=== PATIENT | female | born 1990 | race Caucasian/White ===

== ENCOUNTER → 2022-10-05 13:25 | Outpatient (BNVA) | payer OTHER, SELFPAY | PROVIDERS: PCP Family Medicine; Visit Provider Psychiatry & Neurology Neurology | DX: R25.9 Unspecified abnormal involuntary movements (principal); G43.909 Migraine, unspecified, not intractable, without status migrainosus; R20.2 Paresthesia of skin; R06.83 Snoring; G47.00 Insomnia, unspecified | CPT/HCPCS: 99202 ==

== ENCOUNTER 2025-08-07 11:29 | Outpatient (AMB) | payer BC, SELFPAY ==
--- NOTE | 2025-08-07 10:51 | A.OFFPC_ITS ---
Vital Signs 08/07/25 11:44 Height 5 ft 8 in Weight 241 lb BMI 36.6 BP 120/76 Blood Pressure Location Lt brachial Position Sitting Pulse 92 Pulse Source Pulse Oximeter Temp 97.8 F Temp Source Temporal Artery Scan Pulse Oximetry (%) 98 Oxygen Delivery Method Room Air Intake Visit Reasons: headaches Professional Development Instructor Required: No Accompanied by: Self / Same As Patient Allergies No Known Allergies Allergy (Verified 08/07/25 10:51) Medication List - Last Reconciled 08/07/25 by HIRAM Mario gabapentin 400 mg PO BID meloxicam 15 mg PO DAILY rizatriptan (Maxalt) take 1 tab at onset of headache; if no relief may repeat 1 tab after at least 2 hrs; max = 3 tabs/24 hr PO Tobacco use date assessed: 08/07/25 Dental Screening Dental Screen Date: 08/07/25 Did you have a dental visit in the last 12 months?: Yes Did you have a dental problem in the last 6 months where you did not have access to dental care?: No HPI HPI Comments History of Present Illness Details The patient is a 34-year-old female with Ulcerative colitis, History of Chiari type 1 cleared by neurology, MDD, Insomnia, migraine and history of anemia presenting with headaches and migraines. She reports a history of headaches, which are not new, and attributes them to dehydration due to her ileostomy, which she has had for about a year. She is scheduled to see a specialist for her ileostomy tomorrow and suspects dehydration as a contributing factor to her headaches. She has a history of Chiari malformation, which was evaluated by a neurologist in [place] and deemed non-surgical. The Chiari malformation was initially discovered due to her headaches. The patient has a history of depression and insomnia, which she believes are exacerbated by her current medication, gabapentin. She reports difficulty sleeping, often taking naps rather than having a full night's rest, and has not been on any medication specifically for sleep. She has a history of anemia, with the last blood count performed in 2021, and has previously received an iron infusion due to low levels. The patient has an IUD and does not experience heavy menstrual periods. For her migraines, she has been using [id number] medications like Tylenol and Advil sparingly, because she cannot take ibuprofen due to her use of meloxicam. She experiences migraines a couple of times a week, often triggered by stress and lack of sleep. Patient was informed and verbally consented to the use of an ambient scribe for clinic note documentation during this visit. [facility] Medical History (Updated 08/12/25 @ 00:54 by HIRAM Mario) Anemia Anxiety Chiari malformation type I Eczema H/O sigmoidoscopy Insomnia Major depression Migraine Obesity (BMI 35.0-39.9 without comorbidity) Snoring Ulcerative colitis Surgical History Hx of colonoscopy Family History (Updated 08/07/25 @ 11:49 by Pratima Bishop MA) Mother Diabetes mellitus HTN (hypertension) Myocardial infarction acute Neuropathy Father No problems noted. Social History Housing: House Alcohol intake: current Alcohol intake frequency: a few times a week Patient Tobacco Use Status: Never used Tobacco e-Cigarette/Vaping Use: Never Used service: No Current occupational status: employed Cognitive needs: No Hearing needs: No Vision needs: Yes (Rx Glasses) Questionnaire PHQ-9 Over the last 2 weeks, how often have you been bothered by any of the following problems? 1. Little interest or pleasure in doing things: not at all 2. Feeling down, depressed, or hopeless: nearly every day 3. Trouble falling or staying asleep, or sleeping too much: nearly every day 4. Feeling tired or having little energy: nearly every day 5. Poor appetite or overeating: not at all 6. Feeling bad about yourself - or that you are a failure or have let yourself or your family down: not at all 7. Trouble concentrating on things, such as reading the newspaper or watching television: not at all 8. Moving or speaking so slowly that other people could have noticed. Or the opposite - being so fidgety or restless that you have been moving around a lot more than usual: not at all 9. Thoughts that you would be better off or of hurting yourself in some w ay: not at all Total score: 9 Depression Screening Interpretation: Positive Depression Screening Follow-up: Follow-up Visit Requested Depression Screening Done: Yes Source: Developed by Drs. Edu Parrish, Charissa BCarlos Anderson and colleagues, with an educational andrew from [employer]. Thrive Questionnaire Date Thrive assessed: 08/07/25 I am a: Patient Within the past 12 months, did the food you bought not last and you didn't have the money to get more?: Never true Within the past 12 months, did you worry whether your food would run out before you got money to buy more?: Never true Do you have trouble paying for medicines?: No Do you have trouble getting transportation to medical appointments?: No Do you have trouble paying your heating and electricity bill?: No Do you have trouble taking care of your child, family member or friend?: No Do you have trouble with day-to-day activities such as bathing, preparing meals, shopping, managing finances, etc.?: No Are you currently unemployed and looking for a job?: No Are you interested in more education?: No THRIVE Score: 0 AUDIT C Alcohol Use Questionnaire (AUDIT-C) 1. How often do you have a drink containing alcohol?: Monthly or less 2. How many drinks containing alcohol do you have on a typical day when you are drinking?: 1 or 2 3. How often do you have six or more drinks on one occasion?: Less than monthly Total Score: 2 ELIZABETH-7 AMB Questionnaire ELIZABETH-7 Date ELIZABETH - 7 assessed: 08/07/25 Feeling nervous, anxious, or on edge: 0 = Not at all Not being able to stop or control worryin = Not at all Worrying too much about different things: 0 = Not at all Trouble relaxin = Not at all Being so restless that it is hard to sit still: 0 = Not at all Becoming easily annoyed or irritable: 0 = Not at all Feeling afraid as if something awful might happen: 0 = Not at all Total ELIZABETH-7 score (0-4 normal; 5-9 mild; 10-14 moderate; 15-21 severe): 0 Source: Developed by Drs. Edu Parrish, Carlos Ugarte and colleagues, with an educational andrew from [employer]. Review of Systems Const Details: CONSTITUTIONAL Reports history of anemia fatigue HEAD/NECK Migraines EAR/NOSE/MOUTH/THROAT Negative RESPIRATORY Negative CARDIOVASCULAR Negative GASTROINTESTINAL Negative MUSCULOSKELETAL Negative NEUROLOGICAL Reports headaches and migraines, denies aura or visual disturbances PSYCHIATRIC Reports depression and insomnia Physical exam (Primary Care) Vital Signs: Last Vital Signs Temp 97.8 F 08/07/25 11:44 Pulse 92 08/07/25 11:44 BP 120/76 08/07/25 11:44 Pulse Ox 98 08/07/25 11:44 Oxygen Delivery Method Room Air 08/07/25 11:44 BMI result Body Mass Index 36.6 GENERAL Well developed, obese, in no apparent distress HEENT Head-Normocephalic Eyes- PERRLA, EOMI, Conjuctiva clear, lids WNL Ears- Canals clear, TMs WNL Mouth/Throat-No lesions, no erythema, no exudate Neck- Supple, No lymphadenopathy, thyroid WNL RESPIRATORY Normal I:E, Clear to auscultation CARDIOVASCULAR Regular, rate and rhythm, No murmurs or rubs GASTROINTESTINAL Soft, nontender, normal bowel sounds, no masses MUSCULOSKELETAL Back- nontender Joints- no pain swelling or deformity NEUROLOGICAL Gait normal PSYCHIATRIC Oriented to person, place and time Mood and affect- depressed Appearance WNL Speech WNL Thought processes WNL Tobacco/Smoking Status: Tobacco use Status Tobacco use date assessed 08/07/25 08/07/25 10:52 Patient Tobacco Use Status Never used Tobacco 08/07/25 10:52 e-Cigarette/Vaping Use Never Used 08/07/25 10:52 PHQ-9: PHQ-9 Score PHQ-9: Total score 9 08/07/25 16:13 Depression Screening Interpretation: Positive Depression Screening Follow-up: Follow-up Visit Requested Thrive Assessment: Date of Thrive Assessment Date Thrive assessed 08/07/25 08/07/25 10:52 Coding Level of Care Code New Pt New Pt Level 4 (67527) Patient Type New Diagnoses Chronic migraine without aura without status migrainosus, not intractable G43.709 Migraine type: chronic migraine (15 or more days per month) without aura Status migrainosus presence: without status migrainosus Intractability: not intractable Anemia D64.9 Ulcerative colitis K51.90 Major depression F32.9 Insomnia G47.00 Obesity (BMI 35.0-39.9 without comorbidity) E66.9 Time Spent (min) 30 Comment Time spent on Chart review, medication reconciliation, H&P, patient education, orders Assessment & Plan Assessment & Plan (1) Migraine: Code(s): G43.909 - Migraine, unspecified, not intractable, without status migrainosus Category: Medical Qualifiers: Migraine type: chronic migraine (15 or more days per month) without aura Status migrainosus presence: without status migrainosus Intractability: not intractable Qualified Code(s): G43.709 - Chronic migraine without aura, not intractable, without status migrainosus Plan: The patient reports chronic headaches, likely exacerbated by dehydration due to her ileostomy. She is advised to maintain adequate hydration and follow up with her specialist regarding her ileostom The patient experiences migraines a couple of times a week, often triggered by stress and lack of sleep. She is prescribed Maxalt or Zomig, depending on insurance coverage, to be taken at the onset of migraine symptoms. She is advised to avoid known triggers and maintain a regular sleep schedule. (2) Anemia: Code(s): D64.9 - Anemia, unspecified Category: Medical Plan: The patient has a history of anemia, with the last blood count performed in 2021. Blood work, including a blood count, ferritin level, and iron study, is ordered to assess her current status. (3) Ulcerative colitis: Code(s): K51.90 - Ulcerative colitis, unspecified, without complications Category: Medical Plan: Patient is followed by GI (4) Major depression: Code(s): F32.9 - Major depressive disorder, single episode, unspecified Category: Medical Plan: The patient reports a history of depression, which may be exacerbated by her current medication, gabapentin. No specific changes to her depression management were discussed during this visit. (5) Insomnia: Code(s): G47.00 - Insomnia, unspecified Category: Medical Plan: The patient reports insomnia, potentially exacerbated by gabapentin. Consideration of medications that may aid sleep and also help with migraines was discussed, but no specific medication was initiated. (6) Obesity (BMI 35.0-39.9 without comorbidity): Comment: BMI today was 36.6 Code(s): E66.9 - Obesity, unspecified Category: Medical Plan: Discussed the health risks of obesity with the patient. Reviewed benefits of even moderate weight loss with the patient. Patient will gradually try and increase exercise to 30-40 min 5-7 times per week.. We discussed the patient adding more fruits and vegetables to their diet. Will monitor weight and follow up in 2 months. Plan During the visit, we discussed the management of the patient's migraines, including the use of triptans such as Maxalt or Zomig, depending on insurance coverage. I advised the patient to take the medication at the onset of migraine symptoms and to avoid known triggers such as stress and lack of sleep. We also discussed the need for blood work to assess her anemia status and the importance of maintaining hydration due to her ileostomy. Orders: Orders Complete Blood Count no Diff 08/07/25 D64.9 - Anemia, unspecified, G43.909 - Migraine, unspecified, not intractable, without status migrainosus Comprehensive Met. Panel 08/07/25 G43.909 - Migraine, unspecified, not intractable, without status migrainosus, K51.90 - Ulcerative colitis, unspecified, without complications TSH reflex Free T4 08/07/25 F32.9 - Major depressive disorder, single episode, unspecified, F41.9 - Anxiety disorder, unspecified, G43.909 - Migraine, unspecified, not intractable, without status migrainosus Ferritin 08/07/25 D64.9 - Anemia, unspecified IRON PROFILE 08/07/25 D64.9 - Anemia, unspecified Medications: New rizatriptan (Maxalt) take 1 tab at onset of headache; if no relief may repeat 1 tab after at least 2 hrs; max = 3 tabs/24 hr PO 10 tabs 1RF Patient Instructions: - Take prescribed migraine medication at the onset of symptoms. - Avoid known migraine triggers such as stress and lack of sleep. - Maintain adequate hydration, especially due to ileostomy. - Complete blood work as ordered to assess anemia status.
[2025-08-07 11:44] VITALS: BP 120/76; PULSE 92; TEMP 36.6; O2SAT 98; BMI 36.6
--- OUTSIDE RECORDS SUMMARY | 2025-08-07 14:36 | XMS_ITS | Clinical Summary ---
Author Organization [facility] Address [address] [place] [address] Care Team Providers Care Crew Leader Gluing Name Role Phone Pcp, No Primary Care Provider Unavailabl e Allergies No known active allergies Medications azaTHIOprine (Imuran) 50 mg tablet Take 50 mg by mouth in the morning. 2 Active sertraline (Zoloft) 50 mg tablet Take 75 mg by mouth. 2 Active ustekinumab (Stelara) 130 mg/26 mL injection Infuse 520 mg into a venous catheter. 2 Active ferrous sulfate 325 (65 Fe) MG EC tablet Take 1 tablet by mouth every other day. 2 Active levonorgestreL (Liletta) 20.4 mcg/24 hrs (8 yrs) 52 mg IUD 52 mg by intrauterine route. 2 Active propranolol (Inderal) 60 mg tabletIndicatio ns:Migraine with aura and without status migrainosus, not intractable,Ble pharospasm,Trem or of face and hands Take 1 tablet (60 mg) by mouth in the morning. 60 tablet 11 3 Active Active Problems Problem Noted Date Diagnosed Date Colitis 11/19/2022 Family History Medical History Relation Name Comments Depression Father Migraines Mother Relation Name Status Comments Father Mother Social History Tobacco Use Types Packs/Day Years Used Date Smoking Tobacco: Never Tobacco Cessation:Counseling Given: Not Answered Alcohol Use Standard Drinks/Week Comments Yes 0 (1 standard drink = 0.6 oz pur e alcohol) a few times per month Comments Unknown Sex and Gender Information Value Date Recorded Sex Assigned at Not on file Legal Sex Female 8:58 AM EST Gender Identity Not on file Sexual Orientation Not on file Last Filed Vital Signs Vital Sign Reading Time Taken Comments Blood Pressure 114/70 11/19/2022 8:00 AM EST Pulse 88 11/19/2022 8:00 AM EST Temperature - - Respiratory Rate - - Oxygen Saturation 100% 11/19/2022 8:00 AM EST Inhaled Oxygen Concentration - - Weight 99.4 kg (219 lb 3.2 oz) 11/19/2022 8:00 A M EST Height 172.7 cm (5' 8 ) 11/19/2022 8:00 AM EST Body Mass Index 33.33 11/19/2022 8:00 AM EST Plan of Treatment Health Maintenance Due Date Last Done Comments HIV Screening 1990 HPV Vaccines (2 - 3-dose series) 11/28/2007 10/31/2007 Hepatitis C Screening 2008 Pap Smear 2011 Cervical Cancer Screening 2020 HPV/Cotest 2020 Pneumococcal Vaccine: Pediatrics (0 to 5 Years) and At-Risk Patients (6 to 49 Years) (2 of 2 - PCV) 12/16/2020 12/16/2019 Depression Screening 11/14/2024 COVID-19 Vaccine ( season) 2025 08/24/2021, 12/20/2020, 11/29/2020 Influenza Vaccine (#1) 2025 , 09/23/2020, 08/29/2019, Additional history exists DTaP/Tdap/Td Vaccines (8 - Td or Tdap) 07/16/2025 07/16/2015, 10/31/2007, 06/03/2003, Additional history exists IPV Vaccines Completed 01/27/1996, 07/15, 06/28/1991, Additional history exists MMR Vaccines Completed 02/27/1996, 04/28/1992 Hepatitis B Vaccines Completed 07/27/2000, 02/27/1996, 01/27/1996 Meningococcal Vaccine Aged Out 09/15/2005 No ashlie michael eligible based on patient's age to complete this topic Varicella Vaccines Completed 07/24/2009, 01/27/1996 Hepatitis A Vaccines Aged Out 08/24/2021 No long er eligible based on patient's age to complete this topic HIB Vaccines Aged Out No longer eligi ble based on patient's age to complete this topic Meningococcal B Vaccine Aged Out No l onger eligible based on patient's age to complete this topic Rotavirus Vaccines Aged Out No longer eligible based on patient's age to complete this topic Insurance [facility] Care Teams Crew Leader Gluing Relationship Specialty Start Date End Date Keisha Gutierrez MA PCP - General Internal Medicine 11/19/22
== END 2025-08-07 13:00 | disposition home or self-care (01) ==
LOC: HO.HMCHD 11:30
PROVIDERS: PCP Physician Assistant Medical; Visit Provider Physician Assistant Medical
DX: G43.709 Chronic migraine without aura, not intractable, without status migrainosus (principal); K51.90 Ulcerative colitis, unspecified, without complications; E66.9 Obesity, unspecified; Z68.36 Body mass index [BMI] 36.0-36.9, adult; D64.9 Anemia, unspecified; F32.9 Major depressive disorder, single episode, unspecified; G47.00 Insomnia, unspecified

== ENCOUNTER 2025-09-18 16:20 | Outpatient (AMB) | payer BC, SELFPAY ==
[2025-09-18 15:57] VITALS: BP 109/67; PULSE 75; TEMP 36.9; O2SAT 100; BMI 37.6
--- NOTE | 2025-09-18 15:57 | A.OFFPC_ITS ---
Vital Signs 09/18/25 15:57 Height 5 ft 8 in Intake Visit Reasons: 6 WEEKS FOLLOW UP Supervisor Slate Splitting Required: No Accompanied by: Self / Same As Patient Allergies No Known Allergies Allergy (Verified 09/18/25 15:57) Tobacco use date assessed: 09/18/25 Dental Screening Dental Screen Date: 09/18/25 Did you have a dental visit in the last 12 months?: Yes Did you have a dental problem in the last 6 months where you did not have access to dental care?: No PFSH Medical History Obesity (BMI 35.0-39.9 without comorbidity) Insomnia Snoring Chiari malformation type I Anemia Eczema Ulcerative colitis Migraine Anxiety Major depression H/O sigmoidoscopy Surgical History Hx of colonoscopy Family History Mother Diabetes mellitus HTN (hypertension) Myocardial infarction acute Neuropathy Father No problems noted. Social History Housing: House Alcohol intake: current Alcohol intake frequency: a few times a week Patient Tobacco Use Status: Never used Tobacco e-Cigarette/Vaping Use: Never Used service: No Current occupational status: employed Cognitive needs: No Hearing needs: No Vision needs: Yes (Rx Glasses) Questionnaire PHQ-9 Over the last 2 weeks, how often have you been bothered by any of the following problems? 1. Little interest or pleasure in doing things: not at all 2. Feeling down, depressed, or hopeless: not at all 3. Trouble falling or staying asleep, or sleeping too much: not at all 4. Feeling tired or having little energy: not at all 6. Feeling bad about yourself - or that you are a failure or have let yourself or your family down: not at all 7. Trouble concentrating on things, such as reading the newspaper or watching television: not at all 8. Moving or speaking so slowly that other people could have noticed. Or the opposite - being so fidgety or restless that you have been moving around a lot more than usual: not at all 9. Thoughts that you would be better off or of hurting yourself in some way: not at all Source: Developed by Drs. Edu Parrish, Charissa Servin, Carlos armas nd colleagues, with an educational andrew from [employer]. Thrive Questionnaire Date Thrive assessed: 09/18/25 I am a: Patient Within the past 12 months, did the food you bought not last and you didn't have the money to get more?: Never true Within the past 12 months, did you worry whether your food would run out before you got money to buy more?: Never true Do you have trouble paying for medicines?: No Do you have trouble getting transportation to medical appointments?: No Do you have trouble paying your heating and electricity bill?: No Do you have trouble taking care of your child, family member or friend?: No Do you have trouble with day-to-day activities such as bathing, preparing meals, shopping, managing finances, etc.?: No Are you currently unemployed and looking for a job?: No Are you interested in more education?: No THRIVE Score: 0 AUDIT C Alcohol Use Questionnaire (AUDIT-C) 1. How often do you have a drink containing alcohol?: Never 3. How often do you have six or more drinks on one occasion?: Never Total Score: 0 ELIZABETH-7 AMB Questionnaire ELIZABETH-7 Date ELIZABETH - 7 assessed: 09/18/25 Feeling nervous, anxious, or on edge: 0 = Not at all Not being able to stop or control worryin = Not at all Worrying too much about different things: 0 = Not at all Trouble relaxin = Not at all Being so restless that it is hard to sit still: 0 = Not at all Becoming easily annoyed or irritable: 0 = Not at all Feeling afraid as if something awful might happen: 0 = Not at all Total ELIZABETH-7 score (0-4 normal; 5-9 mild; 10-14 moderate; 15-21 severe): 0 Source: Developed by Drs. dEu Parrish, Carlos Ugarte and colleagues, with an educational andrew from [employer]. Physical exam (Primary Care) Tobacco/Smoking Status: Tobacco use Status Tobacco use date assessed 08/07/25 08/07/25 10:52 Patient Tobacco Use Status Never used Tobacco 08/07/25 10:52 e-Cigarette/Vaping Use Never Used 08/07/25 10:52 Thrive Assessment: Date of Thrive Assessment Date Thrive assessed 08/07/25 08/07/25 10:52 Coding
--- NOTE | 2025-09-18 16:33 | MHC.PC.OV ---
Vital Signs 09/18/25 15:57 Height 5 ft 8 in Weight 247 lb 2 oz BMI 37.6 BP 109/67 Blood Pressure Location Lt brachial Position Sitting Pulse 75 Pulse Source Pulse Oximeter Temp 98.4 F Temp Source Temporal Artery Scan Pulse Oximetry (%) 100 Oxygen Delivery Method Room Air Intake Visit Reasons: 6 WEEKS FOLLOW UP Accompanied by: Self / Same As Patient Allergies No Known Allergies Allergy (Verified 09/18/25 16:37) Medication List - Last Reconciled 09/18/25 by HIRAM Mario gabapentin 400 mg PO BID meloxicam 15 mg PO DAILY rizatriptan (Maxalt) take 1 tab at onset of headache; if no relief may repeat 1 tab after at least 2 hrs; max = 3 tabs/24 hr PO sertraline 25 mg PO DAILY trazodone 1 or 2 orally bedtime PRN; Tobacco use date assessed: 09/18/25 Dental Screening Dental Screen Date: 09/18/25 Did you have a dental visit in the last 12 months?: Yes Did you have a dental problem in the last 6 months where you did not have access to dental care?: No HPI HPI Comments History of Present Illness Details The patient is a 34-year-old female with Ulcerative colitis, MDD, insomnia, migraines, anemia and obesity presenting for follow-up on migraines and evaluation of severe brain fog. She has only taken Maxalt twice for migraines since her last visit, as her symptoms improved after receiving IV fluids for dehydration, and reports the medication worked well. The patient's primary concern is a recent onset of severe and frequent brain fog, which she finds scary. She reports being unable to retain information for her studies and has instances of not remembering recent events, such as watching a movie with her family. This is also causing issues with her partner, who notes her lack of memory of recent conversations. Associated with this, she reports significant sleep disturbance, characterized by difficulty falling asleep and waking up a few hours later, unable to return to sleep. The patient reports significant life stressors, including nursing school, her mother sustaining a major injury, and work. Past medical history is notable for depression in 2010, for which she was treated with sertraline. She also has a history of anemia requiring iron infusions, which occurred post- and in the context of severe colitis with bleeding. The patient recently had a follow-up sigmoidoscopy for her ileostomy with [facility] and is awaiting the results. She did not complete her lab work after the last visit but plans to do so today. Medical History: - Migraine headaches - depression, occurred in 2010, treated with sertraline - Anemia, required infusions, occurred post- - Colitis with bleeding Surgical History: - Ileostomy Medications: - Gabapentin - Meloxicam - Maxalt as needed for migraine Patient was informed and verbally consented to the use of an ambient scribe for clinic note documentation during this visit. [facility] Medical History (Updated 09/18/25 @ 17:38 by HIRAM Mario) Anemia Anxiety Brain fog Chiari malformation type I Eczema H/O sigmoidoscopy Insomnia Major depression Migraine Obesity (BMI 35.0-39.9 without comorbidity) Snoring Ulcerative colitis Surgical History Hx of colonoscopy Family History (Updated 09/18/25 @ 16:38 by Pratima Bishop MA) Mother Diabetes mellitus HTN (hypertension) Myocardial infarction acute Neuropathy Father No problems noted. Social History Housing: House Alcohol intake: current Alcohol intake frequency: a few times a week Patient Tobacco Use Status: Never used Tobacco e-Cigarette/Vaping Use: Never Used service: No Current occupational status: employed Cognitive needs: No Hearing needs: No Vision needs: Yes (Rx Glasses) Questionnaire PHQ-9 Over the last 2 weeks, how often have you been bothered by any of the following problems? 1. Little interest or pleasure in doing things: not at all 2. Feeling down, depressed, or hopeless: several days 3. Trouble falling or staying asleep, or sleeping too much: nearly every day 4. Feeling tired or having little energy: nearly every day 5. Poor appetite or overeating: nearly every day 6. Feeling bad about yourself - or that you are a failure or have let yourself or your family down: not at all 7. Trouble concentrating on things, such as reading the newspaper or watching television: not at all 8. Moving or speaking so slowly that other people could have noticed. Or the opposite - being so fidgety or restless that you have been moving around a lot more than usual: not at all 9. Thoughts that you would be better off or of hurting yourself in some way: not at all Total score: 10 Depression Screening Interpretation: Positive Depression Screening Follow-up: New Medication prescribed Depression Screening Done: Yes [id number] - PHQ-9 Billing: Yes Source: Developed by Drs. Edu Parrish, Charissa Servin, Carlos Luna and colleagues, with an educational andrew from [employer]. Thrive Questionnaire Date Thrive assessed: 09/18/25 I am a: Patient Within the past 12 months, did the food you bought not last and you didn't have the money to get more?: Never true Within the past 12 months, did you worry whether your food would run out before you got money to buy more?: Never true Do you have trouble paying for medicines?: No Do you have trouble getting transportation to medical appointments?: No Do you have trouble paying your heating and electricity bill?: No Do you have trouble taking care of your child, family member or friend?: No Do you have trouble with day-to-day activities such as bathing, preparing meals, shopping, managing finances, etc.?: No Are you currently unemployed and looking for a job?: No Are you interested in more education?: No THRIVE Score: 0 AUDIT C Alcohol Use Questionnaire (AUDIT-C) 1. How often do you have a drink containing alcohol?: Monthly or less 2. How many drinks containing alcohol do you have on a typical day when you are drinking?: 1 or 2 3. How often do you have six or more drinks on one occasion?: Less than monthly Total Score: 2 ELIZABETH-7 AMB Questionnaire ELIZABETH-7 Date ELIZABETH - 7 assessed: 09/18/25 Feeling nervous, anxious, or on edge: 1 = Several days Not being able to stop or control worryin = Nearly every day Worrying too much about different things: 3 = Nearly every day Trouble relaxin = Nearly every day Being so restless that it is hard to sit still: 0 = Not at all Becoming easily annoyed or irritable: 3 = Nearly every day Feeling afraid as if something awful might happen: 0 = Not at all Total ELIZABETH-7 score (0-4 normal; 5-9 mild; 10-14 moderate; 15-21 severe): 13 Source: Developed by Drs. Edu Parrish, Charissa Servin, Carlos Luna and colleagues, with an educational andrew from [employer]. Review of Systems Narrative - Neurological: Reports severe, frequent brain fog and memory loss. - Psychiatric: Reports difficulty falling asleep and staying asleep. - Constitutional: Denies recent illness. Physical exam (Primary Care) Vital Signs: Last Vital Signs Temp 98.4 F 09/18/25 15:57 Pulse 75 09/18/25 15:57 BP 109/67 09/18/25 15:57 Pulse Ox 100 09/18/25 15:57 Oxygen Delivery Method Room Air 09/18/25 15:57 BMI result Body Mass Index 37.6 GENERAL Well developed, obese, in no apparent distress HEENT Head-Normocephalic Neck- Supple, No lymphadenopathy, thyroid WNL RESPIRATORY Normal I:E, Clear to auscultation CARDIOVASCULAR Regular, rate and rhythm, No murmurs or rubs MUSCULOSKELETAL Back- nontender Joints- no swelling or deformity NEUROLOGICAL Gait normal PSYCHIATRIC Oriented to person, place and time Mood and affect- depressed, trouble sleeping Appearance WNL Speech WNL Thought processes WNL Tobacco/Smoking Status: Tobacco use Status Tobacco use date assessed 09/18/25 09/18/25 16:39 Patient Tobacco Use Status Never used Tobacco 09/18/25 16:39 e-Cigarette/Vaping Use Never Used 09/18/25 16:39 PHQ-9: PHQ-9 Score PHQ-9: Total score 10 09/18/25 16:39 Depression Screening Interpretation: Positive Depression Screening Follow-up: New Medication prescribed Thrive Assessment: Date of Thrive Assessment Date Thrive assessed 09/18/25 09/18/25 16:39 Coding Level of Care Code Established Pt Est Pt Level 4 (05722) Patient Type Established Diagnoses Brain fog R41.89 Moderate episode of recurrent major depressive disorder F33.1 Major depression recurrence: recurrent Active/Remission status: currently active Major depression episode severity: moderate Insomnia G47.00 Chronic migraine without aura without status migrainosus, not intractable G43.709 Migraine type: chronic migraine (15 or more days per month) without aura Status migrainosus presence: without status migrainosus Intractability: not intractable Ulcerative colitis K51.90 Additional Codes PHQ-9 - 02489 - PHQ-9 Billing: Yes ([id number]) Time Spent (min) 30 Comment Time was spent on chart review, medication reconciliation, H&P, patient education, orders Assessment & Plan Assessment & Plan (1) Brain fog: Code(s): R41.89 - Other symptoms and signs involving cognitive functions and awareness Category: Medical Plan: The patient's severe brain fog and insomnia are most likely attributable to significant stress and poor sleep. However, organic causes such as anemia and thyroid dysfunction will be ruled out with pending lab work. To address her symptoms, sertraline 25 mg will be initiated for stress and mood, given her positive history with the medication. Trazodone will be prescribed for sleep, starting with one tablet at night with the option to increase to two tablets after 3-4 days if needed. A follow-up is scheduled for 3-4 weeks to reassess. (2) Major depression: Comment: PHQ9 was 10 today Code(s): F32.9 - Major depressive disorder, single episode, unspecified Category: Medical Qualifiers: Major depression recurrence: recurrent Active/Remission status: currently active Major depression episode severity: moderate Qualified Code(s): F33.1 - Major depressive disorder, recurrent, moderate Plan: The patient's severe brain fog and insomnia are most likely attributable to significant stress and poor sleep. However, organic causes such as anemia and thyroid dysfunction will be ruled out with pending lab work. To address her symptoms, sertraline 25 mg will be initiated for stress and mood, given her positive history with the medication. A follow-up is scheduled for 3-4 weeks to reassess. (3) Insomnia: Code(s): G47.00 - Insomnia, unspecified Category: Medical Plan: . Trazodone will be prescribed for sleep, starting with one tablet at night with the option to increase to two tablets after 3-4 days if needed. A follow-up is scheduled for 3-4 weeks to reassess. (4) Migraine: Code(s): G43.909 - Migraine, unspecified, not intractable, without status migrainosus Category: Medical Qualifiers: Migraine type: chronic migraine (15 or more days per month) without aura Status migrainosus presence: without status migrainosus Intractability: not intractable Qualified Code(s): G43.709 - Chronic migraine without aura, not intractable, without status migrainosus Plan: The patient's migraines have improved, potentially due to rehydration, and respond well to Maxalt. She will continue to use Maxalt as needed for acute migraine attack. Patient to follow up as needed if symptoms persist or worsen. (5) Ulcerative colitis: Code(s): K51.90 - Ulcerative colitis, unspecified, without complications Category: Medical Plan: The patient is appropriately managing her ileostomy care and recently underwent a follow-up sigmoidoscopy with [facility]. She is currently awaiting the results of the procedure and will continue to follow up with her surgical technologist as needed. Plan I discussed with the patient that her symptoms of severe brain fog and insomnia are most likely caused by significant life stress and poor sleep, though we need to rule out other medical causes. I recommended starting a low dose of sertraline 25 mg, which she has taken previously for depression and tolerated well, to help with stress and mood. Additionally, I prescribed trazodone at night to improve her sleep, explaining that she can start with one tablet and increase to two if needed after a few days. I emphasized the importance of completing her lab work to check for anemia and thyroid issues. We will have a follow-up visit in three to four weeks to monitor her progress and review her lab results. Medications: New sertraline 25 mg PO DAILY 60 tabs 0RF trazodone 1 or 2 orally bedtime PRN; 60 tabs 0RF sleep Patient Instructions: - Go to the lab to have your blood drawn to check for problems like anemia or thyroid issues. - I have sent two new prescriptions to [facility] on [address] in [place]. - Start taking Sertraline 25 mg once per day to help with stress. - Take one Trazodone tablet at night to help you sleep. If you are still not sleeping well after 3 or 4 days, you can increase the dose to two tablets. - Continue to take Maxalt if you have a migraine headache. - Please make a follow-up appointment to see me in about 3 to 4 weeks.
--- OUTSIDE RECORDS SUMMARY | 2025-09-18 18:57 | XMS_ITS | Clinical Summary ---
Author Organization [facility] Address [address] [place] [address] Care Team Providers Care Chief Relay Tester Name Role Phone Pcp, No Primary Care [...] patient's age to complete this topic Insurance [facility] Care Teams Chief Relay Tester Relationship Specialty Start Date End Date Keisha Gutierrez MA PCP - General Internal Medicine 11/19/22
== END 2025-09-18 16:52 | disposition home or self-care (01) ==
LOC: HO.HMCHD 16:20
PROVIDERS: PCP Physician Assistant Medical; Visit Provider Physician Assistant Medical
DX: R41.89 Other symptoms and signs involving cognitive functions and awareness (principal); F33.1 Major depressive disorder, recurrent, moderate; G47.00 Insomnia, unspecified; G43.709 Chronic migraine without aura, not intractable, without status migrainosus; K51.90 Ulcerative colitis, unspecified, without complications

== ENCOUNTER → 2025-09-18 16:20 | Outpatient (BNVA) | payer BC, SELFPAY | PROVIDERS: PCP Physician Assistant Medical; Visit Provider Physician Assistant Medical | DX: Z13.31 Encounter for screening for depression (principal); Z13.39 Encounter for screening examination for other mental health and behavioral disorders | CPT/HCPCS: 96127 ==

== ENCOUNTER 2025-10-16 16:18 | Outpatient (AMB) | payer BC, SELFPAY ==
[2025-10-16 16:23] VITALS: BP 110/70; PULSE 83; TEMP 36.4; O2SAT 99; BMI 36.5
--- NOTE | 2025-10-16 16:23 | A.OFFPC_ITS ---
Vital Signs 10/16/25 16:23 Height 5 ft 8 in Weight 240 lb BMI 36.5 BP 110/70 Blood Pressure Location Lt brachial Position Sitting Pulse 83 Pulse Source Pulse Oximeter Temp 97.6 F Temp Source Temporal Artery Scan Pulse Oximetry (%) 99 Oxygen Delivery Method Room Air Intake Visit Reasons: 4 Week F/U Insomnia Vp Cardiovascular Service Line Required: No Accompanied by: Self / Same As Patient Allergies No Known Allergies Allergy (Verified 10/16/25 16:23) Medication List - Last Reconciled 10/16/25 by HIRAM Mario gabapentin 400 mg PO BID meloxicam 15 mg PO DAILY rizatriptan (Maxalt) take 1 tab at onset of headache; if no relief may repeat 1 tab after at least 2 hrs; max = 3 tabs/24 hr PO sertraline 50 mg PO DAILY trazodone 1 or 2 orally bedtime PRN; Tobacco use date assessed: 10/16/25 Dental Screening Dental Screen Date: 10/16/25 Did you have a dental visit in the last 12 months?: Yes Did you have a dental problem in the last 6 months where you did not have access to dental care?: No HPI HPI Comments History of Present Illness Details History of Present Illness The patient is a 34 year old female with Ulcerative colitis, MDD, insomnia, migraines, anemia and obesity presenting for follow-up on medication management and to discuss symptoms suggestive of sleep apnea. The patient expresses concerns about possible sleep apnea, prompted by the patient's boyfriend reporting and recording horrible snoring. There is a family history of sleep apnea, with the patient's father and two sisters affected. The patient also reports feeling very tired despite sleeping from around 9:30 PM to 5:30 AM. The patient uses trazodone for sleep but finds that it causes significant morning grogginess. Additionally, the patient reports episodes of jolting awake when falling asleep. A neurologist previously ordered a home sleep study for headaches, but it was never completed. The patient has been taking sertraline 25 mg for approximately four weeks to address brain fog but has not noticed a significant difference. The patient has a history of taking sertraline 50 mg for depression approximately 14 years ago with good results. Medical History: - History of headaches, with a prior lyn rology consultation. - History of depression, adan alfonso with sertraline 50 mg approximately 14 years ago. Medications: - Sertraline 25 mg for brain fog. - Trazodone for sleep. Family History: - Father has sleep apnea. - Two sisters have sleep apnea. Health Maintenance The patient will complete pending lab work. A follow-up visit is scheduled in 3- 4 weeks to review results and assess response to medication changes. Social History - Sleep habits: Typically goes to bed be tween 9:00 PM and 10:00 PM and wakes up at 5:30 AM. Patient was informed and verbally consented to the use of an ambient scribe for clinic note documentation during this visit. [facility] Medical History Brain fog Obesity (BMI 35.0-39.9 without comorbidity) Insomnia Snoring Chiari malformation type I Anemia Eczema Ulcerative colitis Migraine Anxiety Major depression H/O sigmoidoscopy Surgical History Hx of colonoscopy Family History Mother Diabetes mellitus HTN (hypertension) Myocardial infarction acute Neuropathy Father No problems noted. Social History Housing: House Alcohol intake: current Alcohol intake frequency: a few times a week Patient Tobacco Use Status: Never used Tobacco e-Cigarette/Vaping Use: Never Used service: No Current occupational status: employed Cognitive needs: No Hearing needs: No Vision needs: Yes (Rx Glasses) Questionnaire Thrive Questionnaire Date Thrive assessed: 09/18/25 ELIZABETH-7 AMB Questionnaire ELIZABETH-7 Date ELIZABETH - 7 assessed: 09/18/25 Source: Developed by Drs. Edu Parrish, Charissa Servin, Carlos Luna and colleagues, with an educational andrew from [employer]. Review of Systems Narrative Review of Systems - Constitutional: Reports fatigue and feeling tired despite adequate hours of sleep. - Respiratory: Reports loud snoring at night. - Neurological: Reports brain fog and headaches. - Sleep: Reports difficulty sleeping, for which trazodone is used. - Reports feeling groggy in the morning after taking trazodone. - Reports jolting awake when falling asleep. Physical exam (Primary Care) Vital Signs: Last Vital Signs Temp 97.6 F 10/16/25 16:23 Pulse 83 10/16/25 16:23 BP 110/70 10/16/25 16:23 Pulse Ox 99 10/16/25 16:23 Oxygen Delivery Method Room Air 10/16/25 16:23 BMI result Body Mass Index 36.5 GENERAL Well developed, obese, in no apparent distress HEENT Head-Normocephalic Neck- Supple, No lymphadenopathy, thyroid WNL RESPIRATORY Normal I:E, Clear to auscultation CARDIOVASCULAR Regular, rate and rhythm, No murmurs or rubs NEUROLOGICAL Gait normal PSYCHIATRIC Oriented to person, place and time Mood and affect WNL Appearance WNL Speech WNL Thought processes WNL Tobacco/Smoking Status: Tobacco use Status Tobacco use date assessed 10/16/25 10/16/25 16:24 Patient Tobacco Use Status Never used Tobacco 10/16/25 16:24 e-Cigarette/Vaping Use Never Used 10/16/25 16:24 PHQ-9: PHQ-9 Score PHQ-9: Total score 0 10/16/25 16:24 Thrive Assessment: Date of Thrive Assessment Date Thrive assessed 09/18/25 10/16/25 16:24 Coding Level of Care Code Established Pt Complex visit Add On G2211 Patient Type Established Diagnoses Snoring R06.83 Brain fog R41.89 Anemia D64.9 Chronic migraine without aura without status migrainosus, not intractable G43.709 Migraine type: chronic migraine (15 or more days per month) without aura Status migrainosus presence: without status migrainosus Intractability: not intractable Insomnia G47.00 Time Spent (min) 35 Comment Time spent on chart review, H&P, Patient education and orders. Assessment & Plan Assessment & Plan (1) Snoring: Code(s): R06.83 - Snoring Category: Medical Plan: Will request home sleep study (2) Brain fog: Code(s): R41.89 - Other symptoms and signs involving cognitive functions and awareness Category: Medical Plan: Will increase Sertraline to 50mg. Patient to follow up in 3-4 weeks or sooner if symptoms persist or worsen. (3) Anemia: Code(s): D64.9 - Anemia, unspecified Category: Medical Plan: Patient to go for labs. (4) Migraine: Code(s): G43.909 - Migraine, unspecified, not intractable, without status migrainosus Category: Medical Qualifiers: Migraine type: chronic migraine (15 or more days per month) without aura Status migrainosus presence: without status migrainosus Intractability: not intractable Qualified Code(s): G43.709 - Chronic migraine without aura, not intractable, without status migrainosus Plan: Patient to follow up with Neurology (5) Insomnia: Code(s): G47.00 - Insomnia, unspecified Category: Medical Plan: Will try Trazodone 25mg. Plan Plan Patient was informed and verbally consented to the use of an ambient scribe for clinic note documentation during this visit. 1. Suspected Obstructive Sleep Apnea The patient reports significant snoring and daytime fatigue despite adequate hours of sleep, with a strong family history of sleep apnea. A home sleep study will be re-ordered, as a previous order from neurology was not completed. If the study is abnormal, an overnight split study will be indicated to confirm the diagnosis and trial CPAP therapy. 2. Brain Fog The patient reports minimal improvement in brain fog after four weeks on sertraline 25 mg. Given a prior positive response to a higher dose for depression, the sertraline dose will be increased to 50 mg. A new prescription will be sent to the pharmacy. If symptoms do not improve, a different medication will be considered at follow-up. 3. Insomnia With Medication Side Effects The patient reports morning grogginess as a side effect of trazodone taken for sleep. It was recommended that the patient try cutting the tablet in half to see if a lower dose improves sleep without causing next-day fatigue. The patient has a sufficient supply of trazodone and does not need a new prescription. Discussion Notes I discussed my concern for obstructive sleep apnea with the patient, given the reported snoring, fatigue, and strong family history. I explained that the first step is a home sleep study, and if that is abnormal, an in-lab split study would follow to confirm the diagnosis and trial a CPAP machine. For the persistent brain fog, I recommended increasing the sertraline dose to 50 mg, as this dose was effective for the patient in the past, and we will re-evaluate in a few weeks. We also discussed the morning grogginess from trazodone, and I suggested trying half a tablet to mitigate this side effect. We will follow up in 3-4 weeks to review labs and the patient's response to the treatment adjustments. Patient Instructions - I have sent a prescription to increase your sertraline to 50 mg daily. - Try cutting your trazodone tablet in half and take that at bedtime for sleep. - This may help you feel less tired in the morning. - Please get your lab work done as soon as possible. - I have submitted a new request for a home sleep study. - The scheduling department will call you to set it up. - Please schedule a follow-up appointment in about 3 to 4 weeks. Orders: Orders RT home sleep study Today G43.709 - Chronic migraine without aura, not intractable, without status migrainosus, R06.83 - Snoring Medications: New sertraline dosage adjustment 50 mg PO DAILY 90 tabs 0RF Discontinued sertraline Discontinued Reason: Doctor's Order 25 mg PO DAILY 60 tabs 0RF
== END 2025-10-16 16:43 | disposition home or self-care (01) ==
LOC: HO.HMCHD 16:19
PROVIDERS: PCP Physician Assistant Medical; Visit Provider Physician Assistant Medical
DX: R06.83 Snoring (principal); R41.89 Other symptoms and signs involving cognitive functions and awareness; D64.9 Anemia, unspecified; G43.709 Chronic migraine without aura, not intractable, without status migrainosus; G47.00 Insomnia, unspecified

== ENCOUNTER 2025-10-21 11:42 | Outpatient (REF) | payer BC, SELFPAY ==
[2025-10-21 13:08] LABS: Hematocrit 46.6 % (37.0-47.0); Hemoglobin 15.3 g/dl (12.0-16.0); Mean Corpuscular HGB Conc 32.8 g/dl (31.0-35.0); Mean Corpuscular Hemoglobin 27.8 pg (27.0-33.0); Mean Corpuscular Volume 84.6 fL (80.0-98.0); NRBC Abs Auto 0.000 X10*3/uL (0.0-0.012); NRBC Pct Auto 0.0 /100WBC (0.0-0.2); Platelet Count 352 X10*3/uL (160-400); Red Blood Count 5.51 X10*6/uL (4.20-5.50); White Blood Count 6.8 X10*3/uL (4.8-10.8)
[2025-10-21 13:29] LABS: Alanine Aminotransferase 24 U/L (0-31); Albumin Level 4.8 g/dL (3.5-5.0); Alkaline Phosphatase 56 U/L (39-117); Anion Gap 11 (12-20); Aspartate Amino Transferase 20 U/L (5-31); Blood Urea Nitrogen 9 mg/dL (9-16); Calcium 9.5 mg/dL (8.4-10.2); Carbon Dioxide 28 mmol/L (22-29); Chloride 105 mmol/L (96-108); Estimated Glomerular Filt Rate > 60; Iron 51 mcg/dL (30-160); Percent Iron Saturation 20 % (15-50); Potassium 4.0 mmol/L (3.3-5.1); Sodium 140 mmol/L (135-145); Total Iron Binding Capacity 256 mcg/dL (228-428); Total Protein 7.9 g/dL (6.5-8.0); Unsaturated Iron Binding 205 ug/dL
[2025-10-21 13:32] LABS: Ferritin 35 ng/mL (10-122)
== END 2025-10-21 11:43 | disposition home or self-care (01) ==
LOC: HO.10HDL 11:42
PROVIDERS: Visit Provider Physician Assistant Medical
DX: G43.909 Migraine, unspecified, not intractable, without status migrainosus (principal); K51.90 Ulcerative colitis, unspecified, without complications; F32.9 Major depressive disorder, single episode, unspecified; F41.9 Anxiety disorder, unspecified; D64.9 Anemia, unspecified
CPT/HCPCS: 36415; 80053; 82728; 83540; 84443; 85027